=== PATIENT | male | born 1960 | race Caucasian/White ===

== ENCOUNTER 2017-01-06 04:02 | Inpatient (IN) | payer OTHER ==
[~2017-01-06] VITALS: Ht 180.3 cm; Wt 71.3 kg
[2017-01-06 05:47] LABS: BASOPHIL % 0.1 % (0-2); PLATELET COUNT 134 x10^3mcL (130-400)
[2017-01-06 05:48] LABS: RED CELL DISTRIBUTION WIDTH 15.1 % (11.5-14.5)
[2017-01-06 06:06] LABS: ALBUMIN 4.2 g/dL (3.4-5.0); ALKALINE PHOSPHATASE 80 U/L (46-116); ALT/SGPT 20 U/L (16-63); AMYLASE 43 U/L (25-115); AST/SGOT 25 U/L (15-37); BILIRUBIN TOTAL 0.5 mg/dL (0.20-1.00); CALCIUM 8.9 mg/dL (8.5-10.1); CARBON DIOXIDE 20.7 mmol/L (21-32); CHLORIDE SERUM 93 mmol/L (98-107); CREATININE SERUM 1.1 mg/dL (0.7-1.3); GFR1 > 60 mL/min; GLUCOSE SERUM 102 mg/dL (74-106); LIPASE 158 IU/L (73-393); POTASSIUM SERUM 3.9 mmol/L (3.5-5.1); SODIUM SERUM 128 mmol/L (136-145); TOTAL PROTEIN, SERUM 7.9 g/dL (6.4-8.2)
[2017-01-06] MEDS ORDERED: COUMADIN7.5 MG PO (10:18)
[2017-01-06] MEDS ORDERED: ASPIRIN ADULT L81 M3 PO (10:18)
[2017-01-06] MEDS ORDERED: PRINIVIL5 MG PO (10:18)
[2017-01-06] MEDS ORDERED: METOPROLOL SUCC50 M2 PO (10:19)
[2017-01-06 10:52] LABS: MAGNESIUM 1.5 mg/dL (1.8-2.4); PHOSPHOROUS 2.4 mg/dL (2.5-4.9)
[2017-01-06 10:55] LABS: CHOLESTEROL/HDL RATIO 4.9
[2017-01-06 10:58] LABS: FREE T4 1.16 ng/dL (0.76-1.46); FREE THYROXINE INDEX 2.5 ug/dL (1.4-4.5); T4(THYROXINE) 7.4 ug/dL (4.7-13.3)
[2017-01-06 11:00] LABS: UA SPECIFIC GRAVITY 1.015 (1.005-1.035); microscopic required? YES; urine erythrocyte 1+ (NEGATIVE)
[2017-01-06 11:04] LABS: T3 TOTAL 0.9 ng/mL
[2017-01-06 11:08] LABS: AMPHETAMINE QUAL UR NONE DETECTED (NEG <=1000)
[2017-01-06 11:40] VITALS: BP 103/65
[2017-01-06 11:49] VITALS: Ht 180.3 cm; Wt 71.3 kg
[2017-01-06 16:06] VITALS: BP 104/61
[2017-01-06 20:34] VITALS: BP 102/59
[2017-01-07 05:48] VITALS: BP 108/68
[2017-01-07 06:29] LABS: BASOPHIL % 0.3 % (0-2)
[2017-01-07 06:43] LABS: PLATELET COUNT 112 x10^3mcL (130-400); RED CELL DISTRIBUTION WIDTH 14.9 % (11.5-14.5)
[2017-01-07 06:47] LABS: CALCIUM 7.8 mg/dL (8.5-10.1); CARBON DIOXIDE 24.3 mmol/L (21-32); CHLORIDE SERUM 100 mmol/L (98-107); CREATININE SERUM 0.7 mg/dL (0.7-1.3); GFR1 > 60 mL/min; GLUCOSE SERUM 78 mg/dL (74-106); MAGNESIUM 1.7 mg/dL (1.8-2.4); PHOSPHOROUS 2.1 mg/dL (2.5-4.9); POTASSIUM SERUM 4.4 mmol/L (3.5-5.1); SODIUM SERUM 132 mmol/L (136-145)
[2017-01-07 07:49] VITALS: BP 100/64
[2017-01-07 16:30] VITALS: BP 100/64
[2017-01-07 17:15] VITALS: BP 120/71
[2017-01-07 20:54] VITALS: BP 113/68
[2017-01-08 05:23] VITALS: BP 132/84
[2017-01-08 06:18] LABS: CALCIUM 7.8 mg/dL (8.5-10.1); CARBON DIOXIDE 23.7 mmol/L (21-32); CHLORIDE SERUM 102 mmol/L (98-107); CREATININE SERUM 0.6 mg/dL (0.7-1.3); GFR1 > 60 mL/min; GLUCOSE SERUM 94 mg/dL (74-106); MAGNESIUM 1.9 mg/dL (1.8-2.4); PHOSPHOROUS 3.5 mg/dL (2.5-4.9); POTASSIUM SERUM 3.6 mmol/L (3.5-5.1); SODIUM SERUM 136 mmol/L (136-145)
[2017-01-08 07:23] LABS: BASOPHIL % 0.3 % (0-2)
[2017-01-08 07:29] LABS: PLATELET COUNT 114 x10^3mcL (130-400); RED CELL DISTRIBUTION WIDTH 14.9 % (11.5-14.5)
[2017-01-08 09:51] VITALS: BP 113/72
[2017-01-08] MEDS ORDERED: COUMADIN6 MG PO (10:25)
[2017-01-08] MEDS ORDERED: CLEOCIN HCL300 MG PO (10:56)
[2017-01-08] MEDS ORDERED: APAP/HYDROCODON1 T13 PO (11:07)
[2017-01-08] MEDS ORDERED: LAC PO (11:57)
[2017-01-08] MEDS ORDERED: COLACE100 MG PO (11:58)
[2017-01-08 12:30] VITALS: BP 113/72
== END 2017-01-08 14:38 | disposition home or self-care (01) | DRG 720 ==
LOC: ED 04:02 → DU 09:27 → MU 01-07 11:49
PROVIDERS: Emergency Medicine; Specialist; ADMIT Family Medicine
DX: A41.9 Sepsis, unspecified organism (principal); N17.0 Acute kidney failure with tubular necrosis; E86.0 Dehydration; E87.1 Hypo-osmolality and hyponatremia; Q25.6 Stenosis of pulmonary artery; I48.91 Unspecified atrial fibrillation; Z79.82 Long term (current) use of aspirin; Z87.891 Personal history of nicotine dependence; E83.39 Other disorders of phosphorus metabolism; E83.42 Hypomagnesemia; F12.10 Cannabis abuse, uncomplicated; L02.11 Cutaneous abscess of neck; T45.515A Adverse effect of anticoagulants, initial encounter; M94.0 Chondrocostal junction syndrome [Tietze]; R31.9 Hematuria, unspecified; D64.9 Anemia, unspecified
CPT/HCPCS: 82962; 83880; 84439; 87804; J0696; J1170; J1885; J2405; J3010; J3430; J3475; J3490; J7030; J7620; Q0092; Q0163

== ENCOUNTER 2017-04-23 11:08 | Emergency (ER) | payer OTHER ==
[~2017-04-23] VITALS: Ht 180.3 cm; Wt 69.4 kg
[~2017-04-23 11:08] MED LIST: APAP/HYDROCODON1 T13 PO; ASPIRIN ADULT L81 M3 PO; CLEOCIN HCL300 MG PO; COLACE100 MG PO; COUMADIN6 MG PO; COUMADIN7.5 MG PO; LAC PO; METOPROLOL SUCC50 M2 PO; PRINIVIL5 MG PO
[2017-04-23 12:14] VITALS: BP 135/76
== END 2017-04-23 12:14 | disposition home or self-care (01) ==
LOC: ED 11:08
DX: K40.90 Unilateral inguinal hernia, without obstruction or gangrene, not specified as recurrent (principal); I38 Endocarditis, valve unspecified; I10 Essential (primary) hypertension; F17.210 Nicotine dependence, cigarettes, uncomplicated

== ENCOUNTER 2020-08-31 15:55 | Emergency (ER) | payer OTHER ==
[~2020-08-31] VITALS: Ht 180.3 cm; Wt 74.8 kg
[2020-08-31 16:01] VITALS: Ht 180.3 cm; Wt 74.8 kg
[2020-08-31] MEDS ORDERED: IBU600 M2 PO (19:34)
[2020-08-31] MEDS ORDERED: ACETAMINOPHEN-H1 TA1 PO (19:34)
[2020-08-31] MEDS ORDERED: BACLOFEN10 MG PO (19:34)
[2020-08-31 21:08] VITALS: BP 128/86
== END 2020-08-31 20:10 | disposition home or self-care (01) ==
LOC: ED 15:55
DX: M54.9 Dorsalgia, unspecified (principal); R10.9 Unspecified abdominal pain; I10 Essential (primary) hypertension
CPT/HCPCS: J1885